=== PATIENT | female | born 1960 | race American Indian/Alaskan Native ===

== ENCOUNTER 2020-08-12 10:07 | Outpatient (CLI) | payer OTHER ==
--- NOTE | 2020-08-12 11:45 | XRay Report ---
RIGHT KNEE 2 VIEWS INDICATION / CLINICAL INFORMATION: RIGHT KNEE PAIN. COMPARISON: None available. FINDINGS: Moderately advanced lateral and patellofemoral degenerative change. No other significant skeletal abn ormality Signer Name: Oscar Esqueda MD FACR Signed: 08/12/2020 11:41 AM Workstation Name: [email or web address]
--- NOTE | 2020-08-12 11:45 | XRay Report ---
BILATERAL HANDS 4 VIEWS INDICATION / CLINICAL INFORMATION: BILATERAL HAND PAIN. COMPARISON: None available. FINDINGS: Mild to moderate degenerative change in the interphalangeal joints of both hands. No other significan t skeletal abnormality Signer Name: Oscar Esqueda MD FACR Signed: 08/12/2020 11:40 AM Workstation Name: [id number]
== END 2020-08-12 10:08 | disposition home or self-care (01) ==
LOC: XRAY 10:07
PROVIDERS: ATTEND Internal Medicine
DX: M17.11 Unilateral primary osteoarthritis, right knee (principal); M19.042 Primary osteoarthritis, left hand; M19.041 Primary osteoarthritis, right hand

== ENCOUNTER 2021-11-07 13:03 | Outpatient (CLI) | payer MEDICARE ==
--- NOTE | 2021-11-07 14:37 | XRay Report ---
Bilateral shoulders INDICATION: Shoulder pain FINDINGS: Mild glenohumeral and AC degenerative change in bilateral shoulders. Chondral lesion in the proximal right humerus suggesting chondroma. No acute fracture or dislocation in either shoulder. Signer Name: Julio Bills MD Signed: 11/07/2021 2:33 PM Workstation Name: [email or web address]
== END 2021-11-07 13:04 | disposition home or self-care (01) ==
LOC: XRAY 13:03
PROVIDERS: ATTEND Nurse Practitioner Family
DX: M19.012 Primary osteoarthritis, left shoulder (principal); M19.011 Primary osteoarthritis, right shoulder

== ENCOUNTER 2021-11-17 11:38 | Outpatient (CLI) | payer MEDICARE ==
--- NOTE | 2021-11-20 12:10 | Mammography Report ---
DIGITAL SCREENING MAMMOGRAM WITH CAD, 11/17/2021 CLINICAL INFORMATION / INDICATION: Routine screening mammography. TECHNIQUE: Digital bilateral 2D mammography was obtained in the craniocaudal and mediolateral obliqu e projections. This examination was interpreted with the benefit of Computer-Aided Detection analysis . COMPARISON: None available. FINDINGS: Breast Density: The breasts are heterogeneously dense, which may obscure small masses. No dominant mass, suspicious calcifications, or architectural distortion in either breast. IMPRESSION: No mammographic evidence of malignancy. Follow up recommendation: Routine yearly screening mammogram. BI-RADS Category 1: NEGATIVE A "normal" or negative report should not discourage follow up or biopsy of a clinically significant f inding. A written summary of these findings will be mailed to the patient. The patient will be entered into a mammography reporting system which will generate a reminder letter for the patient's next appointmen t at the appropriate interval. The [employer] recommends yearly mammograms starting at age 40 and continuing as l iván as a woman is in good health. Breast MRI is recommended for women with an approximate 20-25% or greater lifetime risk of breast cancer, including women with a strong family history of breast or ova natalie cancer or who have been treated for Hodgkin's disease. Signer Name: Monique Nichols MD Signed: 11/20/2021 12:05 PM Workstation Name: [email or web address]
== END 2021-11-17 11:39 | disposition home or self-care (01) ==
LOC: MAMMO 11:38
PROVIDERS: ATTEND Nurse Practitioner Family
DX: Z12.31 Encounter for screening mammogram for malignant neoplasm of breast (principal)
CPT/HCPCS: 77067